=== PATIENT | male | born 1990 | race African-American/Black ===

== ENCOUNTER 2018-11-24 15:01 | Emergency (ER) | payer OTHER ==
[~2018-11-24] VITALS: Ht 182.9 cm; Wt 98.1 kg
[~2018-11-24 15:01] MED LIST: IBUP-1542 PO
[2018-11-24 15:05] VITALS: BP 112/57; PULSE 92; RESP 20; Ht 182.9 cm; Wt 98.1 kg
[2018-11-24] MEDS ORDERED: KETOROLAC 30 MG INJ IM STA (15:14)
--- NOTE | 2018-11-24 15:23 | ERD ---
ER Documentation Chief Complaint Chief Complaint Pt reports laceration over R eyebrow from "headbutt" at basketball HPI 28-year-old healthy male with no reported past medical or surgical history presents with laceration to right eyebrow ridge. Patient states she was playing basketball and he was head butted accidentally sustaining injury. Since that time is had some bleeding to the area. He otherwise denies LOC, headache, dizziness, blurry or double vision, pain with eye movement, and ability to blink. ROS All systems reviewed and are negative except as per history of present illness. Medications Home Meds Active Scripts Ibuprofen* (Motrin*) 600 Mg Tab, 600 MG PO Q6, #30 TAB Prov:DEREK HALL PA-C 11/24/18 Allergies Allergies: Coded Allergies: No Known Allergy (Unverified , 11/24/18) Physical Exam Vitals Physical Exam Const: No acute distress Head: Atraumatic Eyes: Normal Conjunctiva ENT: Normal External Ears, Nose and Mouth. Neck: Full range of motion. No meningismus. Resp: Clear to auscultation bilaterally Cardio: Regular rate and rhythm, no murmurs Abd: Soft, non tender, non distended. Normal bowel sounds Skin: No petechiae or rashes Back: No midline or flank tenderness Ext: No cyanosis, or edema Neur: Awake and alert Psych: Normal Mood and Affect Results 24 hrs Current Medications Medications Dose Sig/Dylan Start Time Status Last (Trade) Ordered Route PRN Stop Time Admin Dose Reason Admin Ketorolac 30 mg ONCE STAT 11/24/18 DC 11/24/18 Tromethamine IM 15:14 11/24/18 15:19 (Toradol) 15:15 Diphtheria/ 0.5 ml ONCE ONCE 11/24/18 DC 11/24/18 Tetanus/Acell IM* 15:30 11/24/18 16:14 Pertussis 15:31 (Adacel) Procedures/MDM 28-year-old male presents since with right eyebrow ridge laceration. Laceration repaired in ED without complication. Patient neurovascularly intact able to blink with no vision complaints. No tenderness or vascular injury noted Laceration Repair by me: Anesthesia: 1% lidocaine locally Location: Right eyebrow ridge Tendon/Joint/Nerves: No injury Foreign body: None detected after copious irrigation and exploration Technique: Simple Interrupted Sutures Complexity: No subcutaneous sutures/mucosal repair/edge excision Post Closure Length: 3 cm Patient's bleeding was easily controlled in the department and there is no indication of anemia. No evidence of compartment syndrome, neurologic injury, vascular injury, open joint, tendon laceration, or foreign body. Patient is appropriate for outpatient follow up. 48 hour wound check. Scar minimization instructions given. Departure Diagnosis: Primary Impression: Laceration Condition: Stable Patient Instructions: Laceration, Face (Suture Or Tape) Additional Instructions: Call your primary care doctor TOMORROW for an appointment during the next 2-3 days.See the doctor sooner or return here if your condition worsens before your appointment time. DEREK HALL PA-C Nov 24, 2018 15:23
[2018-11-24] MEDS ORDERED: DIPHTH/TET/ACEL PERTUSS (ADULT) 0.5 ML VIAL IM* ONE (15:30)
== END 2018-11-24 16:40 | disposition home or self-care (01) ==
LOC: FTE 15:01
DX: S01.111A Laceration without foreign body of right eyelid and periocular area, initial encounter (principal); W21.05XA Struck by basketball, initial encounter; Y92.310 Basketball court as the place of occurrence of the external cause; Z23 Encounter for immunization
CPT/HCPCS: 12013; 90471; 90715; 96372; J1885; Z7502

== ENCOUNTER 2018-11-29 13:54 | Emergency (ER) | payer OTHER ==
[~2018-11-29] VITALS: Ht 182.9 cm; Wt 97.7 kg
[2018-11-29 14:05] VITALS: BP 134/62; PULSE 62; RESP 18; Ht 182.9 cm; Wt 97.7 kg
--- NOTE | 2018-11-29 14:16 | ERD ---
ER Documentation Chief Complaint Chief Complaint sutue wound check to the right eyebrow. no infection HPI 28-year-old male is here for wound check for laceration on her right eyebrow. It was repaired 5 days ago. He is been cleaning it gently. No fever. No redness or drainage. ROS All systems reviewed and are negative except as per history of present illness. Medications Home Meds Active Scripts Ibuprofen* (Motrin*) 600 Mg Tab, 600 MG PO Q6, #30 TAB Prov:RAFAELDEREK MARCELO 11/24/18 Allergies Allergies: Coded Allergies: No Known Allergy (Unverified , 11/24/18) PMhx/Soc History of Surgery: No Anesthesia Reaction: No Hx Neurological Disorder: No Hx Respiratory Disorders: No Hx Cardiac Disorders: No Hx Psychiatric Problems: No Hx Miscellaneous Medical Probl: No Hx Alcohol Use: No Hx Substance Use: No Hx Tobacco Use: No Smoking Status: Never smoker FmHx Family History: No diabetes Physical Exam Vitals Vital Signs Date Temp Pulse Resp B/P (MAP) Pulse Ox O2 O2 Flow FiO2 Time Delivery Rate 11/29/18 97.6 62 18 134/62 98 14:05 (86) Physical Exam Const: No acute distress Resp: Clear to auscultation bilaterally Cardio: Regular rate and rhythm, no murmurs Skin: Healing laceration on right eyebrow with sutures in place Procedures/MDM Wound is healing appropriately. Although it is on the face it does appear to need a couple more days as it is an area where there is a lot of movement and tension, before sutures to be removed he should return in 1 to 2 days for follow-up. Patient counseled regarding my diagnostic impression and care plan. Prior to discharge all questions answered. Pt agrees with treatment plan and und erstands strict return precautions. Pt is instructed to follow up with primary care provider within 24-48 hours. Precautionary instructions provided including instructions to return to the ER if not improving or for any worsening or changing symptoms or concerns. Departure Diagnosis: Primary Impression: Follow-up examination for injury Condition: Stable Patient Instructions: Wound Check, Lac F/U (No Infection) Additional Instructions: Return to this facility in 2 DAYS for a follow-up exam.Return sooner if your condition worsens. BRIANNA BAILEY PA-C Nov 29, 2018 14:16
== END 2018-11-29 14:31 | disposition home or self-care (01) ==
LOC: FTE 13:54
DX: Z48.00 Encounter for change or removal of nonsurgical wound dressing (principal)
CPT/HCPCS: 99281

== ENCOUNTER 2018-12-04 11:00 | Emergency (ER) | payer OTHER ==
[~2018-12-04] VITALS: Ht 182.9 cm; Wt 97.7 kg
[2018-12-04 11:09] VITALS: BP 122/55; PULSE 65; RESP 20; Ht 182.9 cm; Wt 97.7 kg
--- NOTE | 2018-12-04 12:17 | ERD ---
ER Documentation Chief Complaint Chief Complaint suture removal HPI 28-year-old male presenting for removal of sutures to the right eyelid. Patient had an injury to it while playing soccer and collided with another player. He sustained laceration area denies any headaches or vomiting. Denies dizziness. Denies other medical problems. NKDA. Surgical history denies. Social history denies ROS All systems reviewed and are negative except as per history of present illness. Medications Home Meds Active Scripts Ibuprofen* (Motrin*) 600 Mg Tab, 600 MG PO Q6, #30 TAB Prov:DEREK HALL PA-C 11/24/18 Allergies Allergies: Coded Allergies: No Known Allergy (Unverified , 12/04/18) PMhx/Soc History of Surgery: Yes (kidney) Anesthesia Reaction: No Hx Neurological Disorder: No Hx Respiratory Disorders: No Hx Cardiac Disorders: No Hx Psychiatric Problems: No Hx Miscellaneous Medical Probl: No Hx Alcohol Use: No Hx Substance Use: No Hx Tobacco Use: No Smoking Status: Never smoker FmHx Family History: No diabetes, No coronary disease, No other Physical Exam Vitals Vital Signs Date Temp Pulse Resp B/P (MAP) Pulse Ox O2 O2 Flow FiO2 Time Delivery Rate 12/04/18 97.3 65 20 122/55 97 11:09 (77) Physical Exam GENERAL: The patient is well-appearing, well-nourished, in no acute distress HEENT: Atraumatic. Conjunctivae are pink. Pupils equal, round, and reactive to light. There is no scleral icterus. Tympanic membranes clear bilaterally. Oropharynx clear. CHEST: Clear to auscultation bilaterally. There are no rales, wheezes or rhonchi. HEART: Regular rate and rhythm. No murmurs, clicks, rubs or gallops. NEUROLOGIC: Alert and oriented. Cranial nerves II through XII intact. Motor strength in all 4 extremities with 5 out of 5 strength. Sensation grossly intact. Normal speech and gait. SKIN: Healed laceration site noted to the right eyelid lid with no surrounding erythema or dehiscence. Procedures/MDM MDM: 28-year-old male presenting for suture removal. Sutures removed without complication. I have low suspicion for intracranial hemorrhage or neuro deficit. She is discharged with strict ER precautions and told to follow-up with primary care within 1 to 2 days for close evaluation. All questions answered at discharge Departure Diagnosis: Primary Impression: Encounter for removal of sutures Condition: Stable Patient Instructions: Suture Removal, No Complication Referrals: [facility] YOU HAVE RECEIVED A MEDICAL SCREENING EXAM AND THE RESULTS INDICATE THAT YOU DO NOT HAVE A CONDITION THAT REQUIRES URGENT TREATMENT IN THE EMERGENCY DEPARTMENT. FURTHER EVALUATION AND TREATMENT OF YOUR CONDITION CAN WAIT UNTIL YOU ARE SEEN IN YOUR DOCTORS OFFICE WITHIN THE NEXT 1-2 DAYS. IT IS YOUR RESPONSIBILITY TO MAKE AN APPOINTMENT FOR FOLOW-UP CARE. IF YOU HAVE A PRIMARY DOCTOR --you should call your primary doctor and schedule an appointment IF YOU DO NOT HAVE A PRIMARY DOCTOR YOU CAN CALL OUR PHYSICIAN REFERRAL HOTLINE AT IF YOU CAN NOT AFFORD TO SEE A PHYSICIAN YOU CAN CHOSE FROM THE FOLLOWING [facility] [address] [facility] [address] [facility] [facility] [address] [facility] [address] [facility] [facility] [address] [facility]. [facility] [address] Additional Instructions: FOLLOW UP WITH YOUR PRIMARY CARE PHYSICIAN TOMORROW.Return to this facility if you are not improving as expected. JORDAN SALDANA PA-C Dec 04, 2018 12:17
== END 2018-12-04 11:54 | disposition home or self-care (01) ==
LOC: FTE 11:00
DX: Z48.02 Encounter for removal of sutures (principal)
CPT/HCPCS: 99281

== ENCOUNTER 2019-02-25 11:58 | Emergency (ER) | payer OTHER ==
[~2019-02-25] VITALS: Ht 172.7 cm; Wt 90.0 kg
[2019-02-25 12:02] VITALS: BP 138/60; PULSE 64; RESP 18; Ht 172.7 cm; Wt 90.0 kg
== END 2019-02-25 15:30 | disposition home or self-care (01) ==
LOC: E/R 11:58
DX: Z01.812 Encounter for preprocedural laboratory examination (principal); F17.210 Nicotine dependence, cigarettes, uncomplicated
CPT/HCPCS: 76705; 80053; 83690; 85025; Z7502